=== PATIENT | female | born 1980 | race Caucasian/White ===

== ENCOUNTER → 2023-04-23 13:03 | Outpatient (REF) | payer BC, SELFPAY | LOC: HWWDC 13:03 | PROVIDERS: ATTENDING PHYSICIAN Nurse Practitioner Family; FAMILY PHYSICIAN Internal Medicine | DX: Z12.31 Encounter for screening mammogram for malignant neoplasm of breast (principal) | CPT/HCPCS: 77063; 77067 ==

== ENCOUNTER → 2023-09-29 11:02 | Outpatient (REF) | payer BC, SELFPAY | LOC: HWRAD 11:02 | PROVIDERS: ATTENDING PHYSICIAN Urology; FAMILY PHYSICIAN Internal Medicine | DX: N39.41 Urge incontinence (principal); N39.3 Stress incontinence (female) (male) | CPT/HCPCS: 76770; 76830; 76856 ==

== ENCOUNTER → 2024-01-28 13:01 | Outpatient (REF) | payer BC, SELFPAY | LOC: HWRAD 13:01 | PROVIDERS: ATTENDING PHYSICIAN Nurse Practitioner Family; FAMILY PHYSICIAN Internal Medicine | DX: N83.202 Unspecified ovarian cyst, left side (principal) | CPT/HCPCS: 76830; 76856 ==